=== PATIENT | female | born 1940 | race Caucasian/White ===

== ENCOUNTER 2017-11-26 09:25 | Day surgery (SDC) | payer MEDICARE ==
[2016-04-22 08:02] VITALS: BMI 27.3
[2017-11-26] MEDS ORDERED: Lactated Ringer's 1,000 ML IV ONE (09:53)
[2017-11-26] MEDS ORDERED: Propofol 10 mg/ml Inj (20 ML) ONE (11:06)
[2017-11-26] MEDS ORDERED: Midazolam 2 MG/2 ML VIAL ONE (11:06)
[2017-11-26 11:49] VITALS: TEMP 97
[2017-11-26 11:51] VITALS: BP 112/57; PULSE 65; RESP 16; O2SAT 96
== END 2017-11-26 15:17 | disposition home or self-care (01) ==
LOC: H.ENDO 09:25
PROVIDERS: ATTEND Internal Medicine Gastroenterology
DX: K30 Functional dyspepsia (principal); R12 Heartburn; K44.9 Diaphragmatic hernia without obstruction or gangrene; K21.0 Gastro-esophageal reflux disease with esophagitis; K22.9 Disease of esophagus, unspecified; K31.9 Disease of stomach and duodenum, unspecified; M54.5 Low back pain; R42 Dizziness and giddiness; E03.9 Hypothyroidism, unspecified
CPT/HCPCS: 43239; 88305; J2250; J2704; J7120

== ENCOUNTER 2017-12-10 09:56 | Day surgery (SDC) | payer MEDICARE ==
[2016-04-22 08:02] VITALS: BMI 27.3
[2017-12-10] MEDS ORDERED: Lactated Ringer's 1,000 ML IV ONE (10:33)
[2017-12-10] MEDS ORDERED: Propofol 10 mg/ml Inj (20 ML) ONE (11:26)
[2017-12-10] MEDS ORDERED: Lidocaine PF 2% (5 ml) Inj (For Cardiac Arrhy) IV ONE (11:26)
[2017-12-10 12:07] VITALS: BP 121/71; PULSE 59; RESP 12; TEMP 98; O2SAT 100
== END 2017-12-10 12:34 | disposition home or self-care (01) ==
LOC: H.ENDO 09:56
PROVIDERS: ATTEND Internal Medicine Gastroenterology
DX: Z86.010 Personal history of colon polyps (principal); E03.9 Hypothyroidism, unspecified; K63.89 Other specified diseases of intestine; K57.30 Diverticulosis of large intestine without perforation or abscess without bleeding
CPT/HCPCS: 45380; 88305; J2001; J2704; J7120